=== PATIENT | female | born 1950 | race Caucasian/White ===

== ENCOUNTER → 2017-03-22 | Outpatient (CLI) | payer MEDICARE, OTHER ==
[2017-03-22 10:03] LABS: CHCM 32.1; HCT 46.1 % (34.0-46.0); HDW 2.18; MCH 30.6 pg (25.0-35.0); MCHC 32.6 g/dL (31.0-37.0); Mean Platelet Volume 7.2; RDW 12.9 % (11.5-15.5); WBC 7.2 k/uL (3.8-10.6)
[2017-03-22 10:32] LABS: Non-African American GFR(MDRD) >60 (>60 ml/min/1.73 sqM)
[2017-03-22 12:17] LABS: ALT 34 U/L (9-52); AST 26 U/L (14-36); Alkaline Phosphatase 105 U/L (38-126); Anion Gap 9 mmol/L; Blood Urea Nitrogen 14 mg/dL (7-17); Calcium 9.7 mg/dL (8.4-10.2); Carbon Dioxide 29 mmol/L (22-30); Chloride 99 mmol/L (98-107); Glucose 86 mg/dL (74-99); Non-African American GFR(MDRD) >60 (>60 ml/min/1.73 sqM); Potassium 4.1 mmol/L (3.5-5.1); Sodium 137 mmol/L (137-145); Total Bilirubin 0.4 mg/dL (0.2-1.3); Total Protein 6.8 g/dL (6.3-8.2)
--- NOTE | 2017-03-22 12:24 | MR ---
EXAMINATION TYPE: MR brain wo/w con DATE OF EXAM: 03/22/2017 COMPARISON: NONE HISTORY: amnesia TECHNIQUE: Multiplanar, multisequence images of the brain and brainstem is performed without and with IV contras t, utilizing 6 mL intravenous Gadavist . FINDINGS: Diffusion weighted images demonstrate no evidence of a recent infarct or other diffusion ab normality. Supratentorial and infratentorial volume loss is appreciated as symmetric prominence of t he peripheral sulci, cerebellar folia, and ventricular system. There is no evidence of transependymal edema or There is no extra-axial fluid collection. Numerous supratentorial T2 hyperintense and T1 hy pointense nonspecific white matter foci are scattered throughout the periventricular and subcortical white matter. These are also seen in the juxtacortical region with few near the rowland-white junction. None of these demonstrate surrounding vasogenic edema or enhancement. No abnormal enhancement is seen on the postcontrast images. Dural venous sinuses appear patent. A small amount of fluid is seen with in the left mastoid air cells. The ventricular system and cisternal spaces are normal in size and garo earance. The brain volume is age appropriate. Midline structures demonstrate normal morphology. The craniocervical junction appears within normal limits. The dural venous sinuses appear patent. The visualized sinuses are clear and the globes are intact. There is leftward nasal septal deviation. Major intracranial flow voids are maintained. IMPRESSION: 1. No evidence of acute infarct, midline shift or abnormal enhancement. 2. Numerous foci of supratentorial nonspecific white matter change with no enhancement or restricted diffusion. These most likely relate to sequela of chronic microangiopathy. 3. Incidental note of the small amount of fluid within the left mastoid air cells which should be cor related clinically for pain to rule out mastoiditis. 4. Supratentorial and infratentorial cerebellar atrophy is slightly pronounced for the patient's age. No transependymal edema or hydrocephalus.
== END | disposition home or self-care (01) ==
LOC: RADMRIMAIN 08:39
PROVIDERS: ATTEND Psychiatry & Neurology Pain Medicine
DX: G31.89 Other specified degenerative diseases of nervous system (principal); R41.3 Other amnesia; M54.5 Low back pain; M54.2 Cervicalgia
CPT/HCPCS: 84439; 84481; 80053; 82607; 82565; 82746; 84443; 85027; 83090; 82306; 70553; 36415 ×2; A9581

== ENCOUNTER → 2017-03-22 | Outpatient (CLI) | payer MEDICARE, OTHER ==
--- NOTE | 2017-03-22 09:15 | CT ---
EXAMINATION TYPE: CT cervical spine wo con DATE OF EXAM: 03/22/2017 COMPARISON: NONE HISTORY: 66-year-old female with Cervicalgia, neck pain, prior surgical fusion TECHNIQUE: Contiguous axial scanning of the cervical spine without IV contrast. Coronal and sagittal reconstructions performed. CT DLP: 461 mGycm Automated exposure control for dose reduction was used. FINDINGS: There are postsurgical changes of C4-C7 ACDF. The surgical hardware appears satisfactory. Alignment i s maintained. Mild to moderate degenerative disc interspace narrowing and some endplate spondylosis anteriorly belo w the fusion at C7-T1. Scattered facet arthropathy particularly above the fusion at C3-C4. There appears to be degenerative bony ankylosis along the right-sided C2-C3 facets and to a lesser extent on the left. By CT, no significant spinal canal stenosis is identified. No acute fracture. Alignment is maintained. At C3-C4, hypertrophic facet arthropathy results in moderate right neuroforaminal stenosis. At the fused C5-C6 level, hypertrophic changes of the uncovertebral and facet joints results in mild to moderate bilateral neuroforaminal stenosis. At C6-C7, hypertrophic uncovertebral joint and facet changes results in moderate bilateral neuroforam inal stenosis. Otherwise, no significant neuroforaminal stenosis at the other levels. Some strandy scarring or atelectasis at the medial left upper lobe. Suggestion of underlying emphysem a. No prevertebral or paravertebral soft tissue abnormality seen. IMPRESSION: 1. POST SURGICAL CHANGES OF C4-C7 ACDF. ORTHOPEDIC HARDWARE APPEARS UNCOMPLICATED. 2. FACET ARTHROPATHY ABOVE THE FUSION AT C3-C4 RESULTING IN A MODERATE RIGHT NEUROFORAMINAL STENOSIS. THERE IS A DEGENERATIVE BONY ANKYLOSIS OF THE FACET JOINTS AT C2-C3. 3. MODERATE DEGENERATIVE DISC DISEASE BELOW THE FUSION AT C7-T1. NO ALIVIA CANAL COMPROMISE IDENTIFIED BY CT. 4. AT THE FUSED C5-C6 LEVEL, HYPERTROPHIC BONY CHANGES RESULT IN MILD TO MODERATE BILATERAL NEUROFORA VALERIANO STENOSIS. 5. ALSO, AT THE FUSED C6-C7 LEVEL, THERE IS MODERATE BILATERAL NEUROFORAMINAL STENOSIS.
--- NOTE | 2017-03-22 10:10 | CT ---
EXAMINATION TYPE: CT lumbar spine wo con DATE OF EXAM: 03/22/2017 COMPARISON: NONE HISTORY: 66-year-old female history of lumbar fusion, back pain, lumbago TECHNIQUE: Contiguous axial scanning of the lumbar spine without IV contrast. Coronal and sagittal re constructions performed. CT DLP: 846 mGycm Automated exposure control for dose reduction was used. FINDINGS: Cholecystectomy clips are present. Additional dropped clip either along the pancreaticoduodenal sulcu s or within the bile duct at the level of the ampulla. This can be correlated with alkaline phosphata se and bilirubin levels. No prevertebral or paravertebral soft tissue abnormality seen. L5-S1: There are postsurgical changes of L5-S1 posterior facet screw fusion and lateral osseous fusio n. No significant spinal canal or neuroforaminal stenosis. L4-L5: Hypertrophic degenerative changes of the facet joints above at L4-L5 with associated moderate to severe disc/endplate degenerative change. This results in mild left and rrhg-uc-snyrgzlj right marielle roforaminal stenosis. No spinal canal stenosis. L3-L4: There is trace grade 1 anterolisthesis at L3-L4 secondary to facet arthropathy. No significant spinal canal stenosis but there is bulging disc contributing to mild right and doot-ej-jdnsvreh left neuroforaminal stenosis. L2-L3: Disc osteophyte complex at L2-L3 impressing on the ventral thecal sac. This does not seem to c ontribute to a significant spinal canal stenosis. However, there is moderate left neuroforaminal sten osis at this level. Vertebral body heights are maintained. IMPRESSION: 1. SURGICAL AND OSSEOUS FUSION ACROSS THE POSTERIOR ELEMENTS AT L5-S1 WITH INTERBODY ANKYLOSIS WEL L. NO SIGNIFICANT SPINAL CANAL OR NEUROFORAMINAL STENOSIS HERE. 2. MODERATE TO SEVERE DISC/ENDPLATE DEGENERATIVE CHANGE ABOVE THE FUSION AT L4-L5. THIS RESULTS IN SD [id number] RIGHT NEUROFORAMINAL STENOSIS. 3. 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 4. MODERATE DEGENERATIVE DISC DISEASE WITH DISC OSTEOPHYTE COMPLEX AT L2-L3 AND FACET ARTHROPATHY CON TRIBUTE TO MODERATE LEFT NEURAL FORAMINAL STENOSIS. 5. THERE IS EITHER A DROPPED CHOLECYSTECTOMY CLIP ALONG THE PANCREATIC HEAD OR A CLIP WHICH HAS MIGRA ANSLEY WITHIN THE BILE DUCT LOCATED NOW AT THE AMPULLA. CORRELATE WITH ALKALINE PHOSPHATASE AND BILIRUBI N LEVELS. IF PATIENT IS ASYMPTOMATIC AND LABORATORY ASSESSMENT IS UNREMARKABLE, THIS WOULD PROBABLY B E AN INCIDENTAL FINDING OF NO CLINICAL SIGNIFICANCE.
== END | disposition home or self-care (01) ==
LOC: RADCTMAIN 08:03
PROVIDERS: ATTEND Psychiatry & Neurology Neurology
DX: M99.71 Connective tissue and disc stenosis of intervertebral foramina of cervical region (principal); M99.73 Connective tissue and disc stenosis of intervertebral foramina of lumbar region; M51.36 Other intervertebral disc degeneration, lumbar region; M46.92 Unspecified inflammatory spondylopathy, cervical region; M46.96 Unspecified inflammatory spondylopathy, lumbar region; M50.33 Other cervical disc degeneration, cervicothoracic region; M25.78 Osteophyte, vertebrae; Z98.1 Arthrodesis status
CPT/HCPCS: 36415; 70553; 72125; 72131; 80053; 82306; 82565; 82607; 82746; 83090; 84439; 84443; 84481; 85027

== ENCOUNTER 2018-09-18 07:08 | Day surgery (SDC) | payer MEDICARE, OTHER ==
[2018-09-16 14:40] VITALS: BMI 26.4
[~2018-09-18 07:08] MED LIST: LACTATED RINGERS 1,000 ML IV SCH
[2018-09-18 07:38] VITALS: TEMP 97.6
[2018-09-18] MEDS ORDERED: PROPOFOL 10 MG/ML 20 ML VIAL IV ONE (07:59)
[2018-09-18] MEDS ORDERED: LIDOCAINE 1% INJ 10MG/ML (20 ML MDV) ONE (07:59)
--- NOTE | 2018-09-18 08:28 | P.GSHP ---
History of Present Illness H&P Date: 09/18/18 Chief Complaint: Colon cancer screening Patient here today for colonoscopy. Last colonoscopy 3 years ago. Patient has a personal history of sigmoid colon cancer treated with surgical resection and chemotherapy. Doing well at this time. No bowel complaints. Past Medical History Past Medical History: Cancer, COPD, Deep Vein Thrombosis (DVT), GERD/Reflux, Hypertension, Memory Impairment, Neurologic Disorder Additional Past Medical History / Comment(s): hx. heart murmur, Parkinson's-hand tremors, colon cancer 15 yrs. ago-had chemo, hx. colon polyps, hx. DVT years ago w/taking control, has sleep apnea but not enough for any tx. History of Any Multi-Drug Resistant Organisms: None Reported Past Surgical History: Back Surgery, Bowel Resection, Cholecystectomy, Orthopedic Surgery, Tubal Ligation Additional Past Surgical History / Comment(s): lumbar fusion, cervical fusion, jaw surg., foot surg, repair dupuytren's contracture left hand, CTS, elbow left, right knee surg. Past Anesthesia/Blood Transfusion Reactions: Previous Problems w/ Anesthesia, Postoperative Nausea & Vomiting (PONV) Additional Past Anesthesia/Blood Transfusion Reaction / Comment(s): slow to wake up Smoking Status: Current every day smoker - Past Family History Mother Family Medical History: No Reported History Medications and Allergies Home Medications Medication Instructions Recorded Confirmed Type Albuterol Sulfate [Proair Hfa] 1 - 2 puff INHALATION Q6HR PRN 09/16/18 09/18/18 History Ascorbic Acid [Vitamin C] 500 mg PO DAILY 09/16/18 09/18/18 History Aspirin 81 mg PO DAILY 09/16/18 09/18/18 History Cholecalciferol [Vitamin D3] 1,000 unit PO DAILY 09/16/18 09/18/18 History Fluticasone/Salmeterol [Advair 1 inhalation PO BID 09/16/18 09/18/18 History 250-50 Diskus] Lisinopril-Hctz 20-12.5 mg 1 tab PO DAILY 09/16/18 09/18/18 History [Zestoretic 20-12.5] Lubiprostone [Amitiza] 24 mcg PO BID PRN 09/16/18 09/18/18 History Memantine [Namenda] 10 mg PO HS 09/16/18 09/18/18 History Montelukast [Singulair] 10 mg PO DAILY 09/16/18 09/18/18 History Primidone [Mysoline] 100 mg PO HS 09/16/18 09/18/18 History Ranitidine HCl [Zantac] 150 mg PO BID 09/16/18 09/18/18 History Umeclidinium [place] [Incruse 1 puff INHALATION DAILY 09/16/18 09/18/18 History Ellipta] Allergies Allergy/AdvReac Type Severity Reaction Status Date / Time codeine Allergy Abdominal Verified 09/18/18 07:50 Pain Iodinated Contrast- Oral and Allergy Swelling Verified 09/18/18 07:50 IV Dye iodine Allergy Swelling Verified 09/18/18 07:50 shellfish derived [Shellfish] Allergy Swelling Verified 09/18/18 07:50 Sulfa (Sulfonamide Allergy "felt hot Verified 09/18/18 07:50 Antibiotics) all over", eyes red Tetracyclines Allergy Unknown Verified 09/18/18 07:50 ciprofloxacin [From Cipro] AdvReac Nausea & Verified 09/18/18 07:50 Vomiting Surgical - Exam Vital Signs Temp Pulse Resp BP Pulse Ox 97.6 F 59 L 17 129/61 99 09/18/18 07:35 09/18/18 07:35 09/18/18 07:35 09/18/18 07:35 09/18/18 07:35 Physical exam: General: Well-developed, well-nourished HEENT: Normocephalic, sclerae nonicteric Abdomen: Nontender, nondistended Extremities: No edema Neuro: Alert and oriented Assessment and Plan (1) Colon cancer screening Narrative/Plan: Will proceed with colonoscopy at this time. Current Visit: Yes Status: Acute Code(s): Z12.11 - ENCOUNTER FOR SCREENING FOR MALIGNANT NEOPLASM OF COLON SNOMED Code(s): 848457682
--- NOTE | 2018-09-18 08:48 | P.PCN ---
Date of Procedure: 09/18/18 Procedure(s) Performed: PREOPERATIVE DIAGNOSIS: Colon cancer screening, personal history of colon cancer POSTOPERATIVE DIAGNOSIS: Small hepatic flexure polyp PROCEDURE: Colonoscopy with snare polypectomy ANESTHESIA: MAC SURGEON: Elvis Bellamy M.D. SPECIMENS: Hepatic flexure polyp ENDOSCOPIC PROCEDURE: The patient was placed on the endoscopy table in the left decubitus position. The Olympus colonoscope was inserted into the anus and passed under direct visualization to the base of the cecum. The appendiceal orifice was visualized. From that point the scope was slowly withdrawn inspecting all surfaces carefully. There were no neoplastic inflammatory or polypoid lesions throughout the cecum and ascending colon. In the proximal transverse colon at the hepatic flexure a small polyp was seen and removed using the snare with cautery technique. The remainder of the transverse descending and rectum appeared normal. The previous colorectal anastomosis was patent with slight stricture formation although the scope was able to pass through there without significant difficulty. There was no visible diverticulosis seen. Digital rectal examination was normal. The patient was taken to the recovery room in stable condition per anesthesia guidelines. RECOMMENDATIONS: Await biopsy results. Recommend follow-up colonoscopy 5 years.
[2018-09-18 08:52] VITALS: RESP 16
[2018-09-18 09:10] VITALS: BP 122/63; PULSE 71
== END 2018-09-18 09:38 | disposition home or self-care (01) ==
LOC: ORWHC2ENDO 07:08
PROVIDERS: ATTEND Surgery
DX: Z12.11 Encounter for screening for malignant neoplasm of colon (principal); Z85.038 Personal history of other malignant neoplasm of large intestine; D12.3 Benign neoplasm of transverse colon; F17.200 Nicotine dependence, unspecified, uncomplicated; G20 Parkinson's disease; G47.30 Sleep apnea, unspecified; I10 Essential (primary) hypertension; J44.9 Chronic obstructive pulmonary disease, unspecified; K21.9 Gastro-esophageal reflux disease without esophagitis; Z79.82 Long term (current) use of aspirin; Z86.010 Personal history of colon polyps; Z86.718 Personal history of other venous thrombosis and embolism; Z88.1 Allergy status to other antibiotic agents; Z88.2 Allergy status to sulfonamides; Z88.8 Allergy status to other drugs, medicaments and biological substances; Z90.49 Acquired absence of other specified parts of digestive tract; Z79.51 Long term (current) use of inhaled steroids; Z79.899 Other long term (current) drug therapy; Z91.041 Radiographic dye allergy status; Z88.5 Allergy status to narcotic agent; Z91.013 Allergy to seafood
CPT/HCPCS: 88305; 45385; J2001; J2704

== ENCOUNTER → 2021-11-25 | Outpatient (CLI) | payer MEDICARE, OTHER ==
--- NOTE | 2021-11-26 07:49 | CT ---
EXAMINATION TYPE: CT chest w con DATE OF EXAM: 11/25/2021 COMPARISON: None HISTORY: COPD CT DLP: 306.3 mGycm Automated exposure control for dose reduction was used. CONTRAST: CT scan of the chest is performed with IV Contrast, patient injected with 100 mL of Isovue 300. FINDINGS: LUNGS: Mild hyperinflation compatible with COPD. The lungs are grossly clear, there is no concerning parenchymal mass or nodule identified. There is no pleural effusion or pneumothorax seen. The trac heobronchial tree is patent. MEDIASTINUM: There are no greater than 1 cm hilar or mediastinal lymph nodes. No pericardial effusi on is seen. Thoracic aorta is of normal caliber. The heart is not enlarged. UPPER ABDOMEN: No significant abnormality appreciated. OTHER: No additional significant abnormality is seen. IMPRESSION: Mild COPD.
== END | disposition home or self-care (01) ==
LOC: RADCTMAIN 15:39
PROVIDERS: ATTEND Internal Medicine Critical Care Medicine
DX: J44.9 Chronic obstructive pulmonary disease, unspecified (principal)
CPT/HCPCS: 82565; 84520; 71260; 36415; Q9967

== ENCOUNTER → 2023-07-25 | Outpatient (CLI) | payer MEDICARE, OTHER ==
--- NOTE | 2023-07-25 11:58 | CT ---
EXAMINATION TYPE: CT cervical spine wo con CT DLP: 482.5 mGycm, Automated exposure control for dose reduction was used. DATE OF EXAM: 07/25/2023 11:06 AM COMPARISON: 03/22/2017.. CLINICAL INDICATION:Female, 72 years old with history of M54.50 LOW BACK PAIN, UNSPECIFIED,M50.30 DDD ,M43.22 FUSION O; PHH, Chronic neck pain. TECHNIQUE: Axial CT images from the skull base to the inferior aspect of T2 we obtained without intra venous contrast. Coronal and sagittal reformatted images were also reviewed. Contrast used: mL of , (if blank None) Oral contrast used: (if blank None) FINDINGS: Fracture: None. Osseous structures: Post fixation changes from C4 to C7. Hardware appears intact. There is good osseo us fusion at these levels. Mild multilevel degeneration changes throughout the spine. Vertebral alignment: Alignment within normal limits. Spinal canal/Neural Foramina: No evidence of significant spinal canal narrowing. Facet joint uncovert ebral joint arthropathy scattered throughout the cervical spine with varying degrees of neural forami nal stenosis. Neural foraminal stenosis worse at C5-C6 and C6-C7 bilaterally with moderate to severe stenosis Neck soft tissues: Prevertebral soft tissues are within normal limits. Other: The airway is patent. Moderate centrilobular emphysema changes. IMPRESSION: 1. Post fixation changes to the spine with hardware intact. There is good osseous fusion at the fixat ion levels. No evidence of cervical spine fracture. 2. Umeo-fh-akmrsyzd multilevel degenerative disc disease. Neural foraminal stenosis worse at C5-C6 an d C6-C7 bilaterally with moderate to severe stenosis
--- NOTE | 2023-07-25 12:03 | CT ---
EXAMINATION TYPE: CT lumbar spine wo con CT DLP: 847.8 mGycm, Automated exposure control for dose reduction was used. DATE OF EXAM: 07/25/2023 11:06 AM COMPARISON: 03/22/2017.. CLINICAL INDICATION:Female, 72 years old with history of M54.50 LOW BACK PAIN, UNSPECIFIED, M43.26 FU MONI OF SPINE KEREN; Chronic low back pain. TECHNIQUE: Multiple axial images were obtained from the midportion of T11 through the sacroiliac shon nts. Soft tissue and bone windows in coronal and sagittal planes were obtained and reviewed. 3-D ref ormats of the bones were created on a separate workstation and submitted for review. Contrast used: mL of , (None, if empty). Oral contrast used: (None, if empty). FINDINGS: Alignment: There are 5 lumbar type vertebral bodies within normal alignment. Bone: No evidence of fracture is identified. Multilevel degeneration changes with osteophyte formati on, disc space narrowing, facet joint arthropathy. Fixation changes at L5-S1. Hardware appears intact. Discs: T12-L1: No spinal canal or neural foraminal stenosis is identified. L1-L2: No spinal canal or neural foraminal stenosis is identified. L2-L3: Facet joint arthropathy and disc bulging result with moderate spinal canal stenosis and modera te left and mild to moderate bilateral neural foraminal stenosis. L3-L4: No spinal canal or neural foraminal stenosis is identified. L4-L5: Facet joint arthropathy and disc bulging result with mild spinal canal stenosis and moderate r ight and mild left neural foraminal stenosis. L5-S1: No spinal canal or neural foraminal stenosis is identified. Other: Arthrosclerosis of the arterial vasculature. IMPRESSION: 1. No evidence for spinal fracture. 2. Degeneration changes of the spine with L4-L5 moderate right and L2-L3 moderate left neural foramin al stenosis. Spinal canal stenosis worse at L2-L3 with moderate.
== END | disposition home or self-care (01) ==
LOC: RADCTMAIN 10:38
PROVIDERS: ATTEND Psychiatry & Neurology Neurology
DX: M43.22 Fusion of spine, cervical region (principal); M50.30 Other cervical disc degeneration, unspecified cervical region; M51.36 Other intervertebral disc degeneration, lumbar region; M48.02 Spinal stenosis, cervical region; M47.816 Spondylosis without myelopathy or radiculopathy, lumbar region; M99.73 Connective tissue and disc stenosis of intervertebral foramina of lumbar region; M48.061 Spinal stenosis, lumbar region without neurogenic claudication
CPT/HCPCS: 72125; 72131